=== PATIENT | male | born 1960 | race Caucasian/White ===

== ENCOUNTER 2017-10-03 16:46 | Emergency (ER) | payer BC ==
[~2017-10-03] VITALS: Ht 180.3 cm; Wt 89.8 kg
== END 2017-10-03 17:50 | disposition home or self-care (01) ==
LOC: FSED 16:46
DX: S52.92XA Unspecified fracture of left forearm, initial encounter for closed fracture (principal); W01.0XXA Fall on same level from slipping, tripping and stumbling without subsequent striking against object, initial encounter; Y93.11 Activity, swimming; Y92.016 Swimming-pool in single-family (private) house or garden as the place of occurrence of the external cause
CPT/HCPCS: 99283

== ENCOUNTER 2020-03-12 10:52 | Inpatient (IN) | payer BC, OTHER ==
[~2020-03-12] VITALS: Ht 180.3 cm; Wt 88.5 kg
[2020-03-12] MEDS ORDERED: AZITHROMYCIN 500MG/NS 250 ML 250 ML IV STA (11:24)
[2020-03-12] MEDS ORDERED: DEXAMETHASONE SOD PHOS 10 MG/1 ML VIAL IV ONE (11:30)
[2020-03-12] MEDS ORDERED: AZITHROMYCIN 500MG/NS 250 ML 250 ML ONE (12:12)
[2020-03-12] MEDS ORDERED: ASPIRIN 81 MG CHEW TAB PO ONE (12:30)
[2020-03-12 14:55] VITALS: BP 155/111
[2020-03-12] MEDS ORDERED: ATORVASTATIN CA20 MG PO (15:31)
[2020-03-12] MEDS ORDERED: CEFTRIAXONE SOD 1 GM/NS 50 ML 50 ML IV SCH (15:45)
[2020-03-12] MEDS ORDERED: CLONIDINE HCL 0.1 MG TAB PO PRN (16:00)
[2020-03-12] MEDS ORDERED: SODIUM CHLORIDE 0.9% 250ML 250 ML ONE (16:20)
[2020-03-12] MEDS ORDERED: ENOXAPARIN SOD INJ 40 MG/0.4 ML SYR SC SCH (17:00)
[2020-03-12 20:00] VITALS: BP 144/101
[2020-03-12 22:31] LABS: CREATINE KINASE MB 0.6 ng/mL (0-5.0)
[2020-03-13] VITALS: BP 129/87
[2020-03-13 04:00] VITALS: BP 150/94
[2020-03-13 08:58] VITALS: BP 142/87
[2020-03-13] MEDS ORDERED: AZITHROMYCIN 500MG/NS 250 ML 250 ML IV SCH (09:00)
[2020-03-13] MEDS ORDERED: DEXAMETHASONE SOD PHOS 10 MG/1 ML VIAL IV SCH (09:00)
[2020-03-13 09:08] VITALS: BP 142/81
[2020-03-13 09:12] LABS: BASOPHILS % 0.3 % (0.0-1.0); EOSINOPHILS % 0.5 % (0.0-6.0); HEMATOCRIT 46.7 % (38.2-49.6); HEMOGLOBIN 15.5 g/dL (14.0-18.0); LYMPHOCYTES # (AUTO) 1.3 (1.0-3.2); LYMPHOCYTES % 17.7 % (18.0-39.1); MEAN CORPUSCULAR HEMOGLOBIN 29.4 pg (28-32); MEAN CORPUSCULAR HGB CONC 33.2 g/dL (31-35); MEAN CORPUSCULAR VOLUME 88.4 fL (81-99); MONOCYTES # (AUTO) 0.5 (0.2-0.8); MONOCYTES % 7.1 % (4.4-11.3); NEUTROPHILS # (AUTO) 4.5 (2.1-6.9); NEUTROPHILS % 61.5 % (38.7-80.0); PLATELET COUNT 321 x10e3/uL (140-360); RED BLOOD COUNT 5.28 x10e6/uL (4.3-5.7); RED CELL DISTRIBUTION WIDTH 11.7 % (11.7-14.4)
[2020-03-13 09:42] LABS: CREATINE KINASE MB 0.6 ng/mL (0-5.0)
[2020-03-13 10:03] LABS: ALANINE AMINOTRANSFERASE 58 IU/L (0-55); ALBUMIN/GLOBULIN RATIO 0.8 (0.8-2.0); ALKALINE PHOSPHATASE 73 IU/L (40-150); ANION GAP 14.9 mmol/L (8-16); BLOOD UREA NITROGEN 19 mg/dL (7-26); BUN/CREATININE RATIO 19 (6-25); CALCIUM 8.7 mg/dL (8.4-10.2); CARBON DIOXIDE 27 mmol/L (22-29); CHLORIDE 102 mmol/L (98-107); CREATININE, SERUM 0.98 mg/dL (0.72-1.25); EST GLOMERULAR FILTRATION RATE > 60 ML/MIN (60-); GLUCOSE 120 mg/dL (74-118); POTASSIUM 3.9 mmol/L (3.5-5.1); SODIUM 140 mmol/L (136-145)
[2020-03-13 11:01] VITALS: BP 136/96
[2020-03-13] MEDS ORDERED: AZITHROMYCIN250 MG PO (11:57)
[2020-03-13] MEDS ORDERED: DECADRON6 MG PO (11:57)
[2020-03-13] MEDS ORDERED: PROVENTIL HFA6.7 GM INH (11:58)
== END 2020-03-13 12:40 | disposition home or self-care (01) | DRG 177 ==
LOC: FSED 11:20 → ERHOLD 12:44 → MED/SURG3 14:53
PROVIDERS: ADMIT Internal Medicine; ATTEND Internal Medicine
PROC: 8E0ZXY6 Isolation (ICD-10-PCS; principal; 2020-03-12)
DX: U07.1 COVID-19 (principal); J12.82 Pneumonia due to coronavirus disease 2019; I10 Essential (primary) hypertension; E78.5 Hyperlipidemia, unspecified; R09.02 Hypoxemia
CPT/HCPCS: 36415; 71045; 80053; 82550; 82553; 84484; 85025; 93005; 99284; J0456; J0696; J1100; J1650; J7050; U0002